=== PATIENT | female | born 1995 | race Caucasian/White ===

== ENCOUNTER 2018-11-14 00:54 | Emergency (ER) | payer OTHER ==
[~2018-11-14] VITALS: Ht 154.9 cm; Wt 46.7 kg
[2018-11-14 01:17] VITALS: BP 106/71
--- NOTE | 2018-11-14 01:20 | NUR ---
PT BIBS. C.O "HAVING A DULL HEADACHE ALL DAY, I ALSO COULDNT SPEAK OR WRITE PROPERLY A FEW HRS AGO, BUT THAT WENT AWAY" -SOB -N.V -NEURO DEFICITS. AOX4. AMBULATORY W,STEADY GAIT. MD AT BEDSIDE.
== END 2018-11-14 01:56 | disposition home or self-care (01) ==
LOC: ER 01:03
DX: G43.909 Migraine, unspecified, not intractable, without status migrainosus (principal); R29.90 Unspecified symptoms and signs involving the nervous system
CPT/HCPCS: 99281; A4606; Z7502